=== PATIENT | female | born 1985 | race Caucasian/White ===

== ENCOUNTER 2016-08-24 09:39 | Emergency (ER) | payer OTHER ==
[~2016-08-24] VITALS: Ht 165.1 cm; Wt 61.8 kg
[2016-08-24 09:42] VITALS: BP 112/73; PULSE 60; RESP 12; O2SAT 100
--- NOTE | 2016-08-24 09:55 | ED.REPORT ---
HPI-General Illness Date of Service August 24, 2016 ED Provider: Dr. Hector Goodwin M.D. A 31 year old female with a history of asthma and cervical dysplasia presents to the ED with intermittent bilateral flank pain onset six months ago. The patient also reports intermittent dizziness, headache, subjective fever, generalized weakness, sore throat, cough, vomiting (x1 this morning), and constant nausea. Her symptoms most recently onset last night. She denies chest pain, SOB, hematochezia, or other symptoms. The patient has been seen recently for these symptoms and was placed on antibiotics for a kidney infection. She has also been using cranberry juice and tumeric, with relief. Nursing Notes Stated Complaint: KIDNEY HURTS,FEVER,DOUBLE VISION,MIGRAINE Chief Complaint: Back Pain or Injury Nursing Notes Reviewed: Yes Allergies: Coded Allergies: Sulfa (Sulfonamide Antibiotics) (Verified Allergy, Unknown, uknown, childhood, 08/24/16) General Time Seen by MD: 09:54 Chief Complaint Other Hx Obtained From: Patient Arrived By: Walk-in Sudden in Onset?: No Onset Occurred: More than a week ago... (6 months) Symptom Duration: Intermittent Location: : Back (Bilateral Flank): Head Quality: Painful Severity: Current: Moderate Severity: Maximum: Moderate Context Related History: Reports Asthma Recent Healthcare: Recent doctor visit, Previous diagnosis Similar Sx Previous: Yes Past Medical History Past Medical History Asthma Cervical dysplasia Severe -induced hypertension with elevated troponin at time of delivery Past Surgical History None reported Family History Mom had pulmonary hypertension and in 40s Smoking History Light Tobacco Smoker (One pack per week) Social History Smokes CBD marijuana intermittently Alcohol Use: "Social" Other Social History: Good social support, Lives with children, From out of town Ambulatory Status Independent Review of Systems Full Review of Systems Constitutional: Reports: Fever (Subjective), Weakness - generalized Ears / Nose / Throat: Reports: Sore throat Respiratory: Reports: Non-productive cough, Denies: Shortness of breath Cardiovascular: Denies: Chest pain GI: Reports: Nausea, Vomiting (x1 this morning), Denies: Hematochezia Female: Reports: Flank pain (Bilateral) Neurologic: Reports: Dizziness, Headache Complete sys rev & neg: except as marked. Physical Exam Vital Signs Vital Signs Date Time Temp Pulse Resp B/P Pulse Ox O2 Delivery O2 Flow Rate FiO2 08/24/16 09:42 36.4 60 12 112/73 100 Room Air Initial VS: Reviewed Neck: Supple, Full range of motion Neurologic: Alert, Oriented, Nonfocal Psychiatric: Mood/affect normal, Behavior normal, Normal thought content General/Constitutional: Awake, Alert, No acute distress Head / Eyes: Atraumatic, Normocephalic Right temporal tenderness ENT: Airway patent, Mucous membranes moist, Tympanic membs NL, Ext aud canal NL Tonsillar crypt debris Respiratory / Chest: Breath sounds NL, Breath sounds = bilat, No respiratory distress Cardiovascular: Heart rate NL, Regular rhythm, Heart sounds NL Abdomen: Soft, No guarding Tenderness/Guarding/Rebound: Positive: Tender LLQ... (Mild), Tender LUQ... ( Mild) Back: Full range of motion Flank / Spine / Paraspinal: Positive: Flank tender bilateral (Mild) Skin: No rash, Warm, Dry Interpretation & Diagnostics URINE : Negative URINE DIPSTICK: Bedside Urine Specific [place] * 1.015 Bedside Urine pH * 8 Bedside Urine Leukocyte Esterase * ++ Bedside Urine Nitrite * Negative Bedside Urine Protein * Trace Bedside Urine Glucose * Normal Bedside Urine Ketones * Negative Bedside Urine Urobilinogen * Normal Bedside Urine Bilirubin * Negative Urine to Lab * Yes Lab Results Interpretation Test 08/24/16 09:45 Urine Color Yellow (YELLOW) Urine Appearance Hazy (CLEAR,HAZY) Urine pH 6.5 (5.0-8.0) Urine Specific [place] 1.020 (1.003-1.035) Urine Protein Negativemg/dL (NEG,TRACE) Urine Glucose (UA) Negativemg/dL (NEGATIVE) Urine Ketones Negativemg/dL (NEGATIVE) Urine Occult Blood Negative (NEGATIVE) Urine Nitrite Negative (NEGATIVE) Urine Bilirubin Negative (NEGATIVE) Urine Urobilinogen Normalmg/dL (NORMAL) Urine Leukocyte Esterase Negative (NEGATIVE) Urine RBC 0-2/hpf (0-2) Urine WBC 0-5/hpf (0-5) Urine Epithelial Cells Occasional/hpf (NONE-MOD) Urine Crystals None seen (NONE SEEN) Urine Bacteria Moderate/hpf (NONE-FEW) Urine Hyaline Casts None/lpf (NONE) Urine Granular Casts None seen (NONE SEEN) Urine Waxy Casts None seen (NONE SEEN) Urine Red Blood Cell Casts None seen (NONE SEEN) Urine White Blood Cell Casts None seen (NONE SEEN) Urine Mucus Present (None Seen) Urine Trichomonas None seen (NONE SEEN) Urine Yeast None (NONE SEEN) Urinalysis Comment None Urine Culture Reflexed Indicated Hold Urine Received (Received) Re-Eval/Medical Decision Time of Eval: 11:00 Patient Status: Condition improved Re-Evaluation/Progress Note: Discussed with patient lab results, diagnosis, and plan for discharge. Follow-up and return to the ER instructions given. Patient agrees with plan for care and all questions were addressed. Counseled Regarding: Diagnosis, Lab results, Need for follow-up, When/why to return to ED Discharge & Departure Primary Impression: Migraine Migraine type: without aura Status migrainosus presence: without status migrainosus Intractability: not intractable Qualified Code: G43.009 - Migraine without aura, not intractable, without status migrainosus Additional Impressions: Symptomatic tonsillar crypt Flank pain Disposition: Home Discharge Condition All VS Reviewed: Yes Condition: Improved Patient Instructions: Acute Headache (GEN) Additional Instructions: No dangerous or emergent cause for your symptoms is identified or suspected at this time. I recommend follow-up with your primary care doctor in the coming days to discuss further evaluation for the ongoing problems that you are having. The urine test is nearly normal. Culture results will be available in 2 days and you will receive a phone call if it is abnormal. Referrals: Elyssa Espinosa DO (PCP) Jaime Dove MD Scribe Attestation Portions of this note were transcribed by Eladia Doyle. I, Dr. Goodwin, personally performed the history, physical exam, and medical decision-making; I reviewed and confirmed the accuracy of the information in the transcribed note. Signed by: Matthew Delvalle, 08/24/2016, 12:05 copies to: Jaime Dove MD; Elyssa Espinosa Kirk H MD August 24, 2016 09:55 ELADIA DOYLE August 24, 2016 10:03
[2016-08-24 10:42] LABS: APPEARANCE,URINE HAZY (CLEAR,HAZY); COLOR,URINE YELLOW (YELLOW); OCCULT BLOOD,URINE NEGATIVE (NEGATIVE); PH,URINE 6.5 (5.0-8.0); UROBILINOGEN,URINE NORMAL (NORMAL)
== END 2016-08-24 11:15 | disposition home or self-care (01) ==
LOC: SED 09:39
DX: G43.009 Migraine without aura, not intractable, without status migrainosus (principal); J35.8 Other chronic diseases of tonsils and adenoids; R10.32 Left lower quadrant pain; R10.12 Left upper quadrant pain; R53.1 Weakness; J45.909 Unspecified asthma, uncomplicated; Z88.2 Allergy status to sulfonamides